=== PATIENT | female | born 1980 | race African-American/Black ===

== ENCOUNTER 2017-08-13 09:47 | Emergency (ER) | payer MEDICAID, OTHER ==
--- NOTE | 2017-08-13 11:28 | RAD ---
3 VIEWS RIGHT HAND: Date: 08/13/17 COMPARISON: None. HISTORY: Right hand pain after fall. FINDINGS: Three views of the right hand show a fracture of the fifth metacarpal neck. Overlying soft tissue sw elling is seen. The fracture extends to the lateral aspect of the metacarpophalangeal joint. IMPRESSION: Fifth metacarpal neck fracture. POS: [facility]
--- NOTE | 2017-08-13 12:14 | RAD ---
3 VIEWS RIGHT HAND: Date: 08/13/17 COMPARISON: 08/13/17 at 1002 hours. HISTORY: Post reduction. FINDINGS: Two views of the right hand show interval ulnar gutter splint placement for the fifth metacarpal fra cture. This splint obscures fine bony and soft tissue detail. IMPRESSION: Status post stent placement for a right fifth metacarpal fracture. POS: [facility]
== END 2017-08-13 11:15 | disposition home or self-care (01) ==
LOC: MADERS 09:47
DX: S62.336A Displaced fracture of neck of fifth metacarpal bone, right hand, initial encounter for closed fracture (principal); W19.XXXA Unspecified fall, initial encounter
CPT/HCPCS: 26605; J2001